=== PATIENT | male | born 1945 | race Caucasian/White ===

== ENCOUNTER 2017-05-02 13:42 | Emergency (ER) | payer MEDICARE, OTHER ==
[~2017-05-02] VITALS: Ht 177.8 cm; Wt 81.6 kg
[2017-05-02 13:44] VITALS: BP 134/75
[2017-05-02] MEDS ORDERED: LIDOCAINE 1%, 20ML ONE (14:26)
[2017-05-02] MEDS ORDERED: LIDOCAINE 1%, 20ML INFIL ONE (14:30)
[2017-05-02] MEDS ORDERED: DIPH,PERTUSS(ACELL),TET VAC/PF 0.5 ML IM-VACC ONE ×2 (14:30→14:40)
[2017-05-02] MEDS ORDERED: BACITRACIN ZINC OINT 500U/GM, 0.9 GM ONE (14:54)
== END 2017-05-02 15:09 | disposition home or self-care (01) ==
LOC: ED 14:55
DX: S51.811A Laceration without foreign body of right forearm, initial encounter (principal); I10 Essential (primary) hypertension; W26.9XXA Contact with unspecified sharp object(s), initial encounter; Y93.89 Activity, other specified; Y92.009 Unspecified place in unspecified non-institutional (private) residence as the place of occurrence of the external cause; Y99.9 Unspecified external cause status
CPT/HCPCS: 90471; 90715